=== PATIENT | male | born 1955 | race Two or more races ===

== ENCOUNTER → 2021-02-16 09:00 | Outpatient (CLI) | payer OTHER, SELFPAY ==
[2021-02-16 16:56] LABS: SARS-CoV-2 RNA PCR Negative
== END ==
PROVIDERS: PCP Family Medicine; Visit Provider Nurse Practitioner Family
DX: J40 Bronchitis, not specified as acute or chronic (principal); Z20.822 Contact with and (suspected) exposure to COVID-19
CPT/HCPCS: C9803; U0003; U0005

== ENCOUNTER 2021-07-15 09:03 | Emergency (ER) | payer SELFPAY ==
[2021-07-15] VITALS (12 sets, daily range): BP systolic 109–158; BP diastolic 80–91; PULSE 66–84; RESP 17–25; TEMP 36.6; O2SAT 93–98
--- NOTE | ~2021-07-15 | CT_ITS ---
EXAMINATION: CT brain wo con DATE: 07/15/2021 10:05 INDICATION: Syncopal episode. Right jaw swelling. TECHNIQUE: 1. Computed tomography (CT) of the head was performed without intravenous contrast. Sagittal and dheeraj nal reconstructions were performed. The mA was adjusted according to patient size. Iterative reconstr uction technique was employed. The dose-length product was 605.33 mGy-cm. 2. CT of the soft tissues of the neck was performed with 75 mL Omnipaque-350 intravenous contrast. Sa gittal and coronal reconstructions were performed. Automated exposure control and iterative reconstru ction technique were employed. The dose length product was 621.94 mGy-cm. COMPARISON: head CT dated 12/17/2007 FINDINGS: Head CT: No acute intracranial hemorrhage, acute infarction or abnormal extra axial fluid collection. Ventricl es are normal and symmetric. No mass/mass effect. Neck CT: No abnormally enhancing lesions in the visualized mid to lower portions of the brain. Orbits are norm al. Mild mucosal thickening the bilateral ethmoid sinuses. Mastoid air cells and middle ear cavities are clear. There is asymmetric mild swelling and hyperemia of the right parotid gland with mild edema in the fat along the inferior margin of the right parotid gland consistent with parotitis. No eviden t sialolithiasis. There are multiple dystrophic calcifications at the bilateral palatine tonsils. Antonino ateral submandibular glands are normal. 4.7 cm heterogeneously enhancing mass in the left thyroid lob e. 1.5 cm nodule in the inferior right thyroid lobe. There are few coarse calcifications at both the left and right thyroid. No pathologically enlarged cervical lymphadenopathy. Small amount of atherosc lerotic calcifications with 0% stenosis at the bilateral carotid bulbs. Emphysema and mild dependent atelectasis in the visualized bilateral upper lobes. Superior mediastinum is unremarkable. Severe cer vical spondylosis. IMPRESSION: 1. No acute intracranial process. 2. Right parotitis. 3. Multinodular goiter with 4.7 cm enhancing mass in the left thyroid for which ultrasound guided bio psy would be recommended. 4. Emphysema Reviewed, dictated and finalized at location A. MAL CUTTER HELPER IMPRESSION: 1. No acute intracranial process. 2. Right parotitis. 3. Multinodular goiter with 4.7 cm enhancing mass in the left thyroid for which ultrasound guided biopsy would be recommended. 4. Emphysema
--- NOTE | ~2021-07-15 | CT_ITS ---
EXAMINATION: CT soft tissue neck w con DATE: 07/15/2021 10:05 INDICATION: Syncopal episode. Right jaw swelling. TECHNIQUE: 1. Computed tomography (CT) of the head was performed without intravenous contrast. Sagittal and coronal reconstructions were performed. The mA was adjusted according to patient size. Iterative reconstruction technique was employed. The dose-length product was 605.33 mGy-cm. 2. CT of the soft tissues of the neck was performed with 75 mL Omnipaque-350 intravenous contrast. Sagittal and coronal reconstructions were performed. Automated exposure control and iterative reconstruction technique were employed. The dose length product was 621.94 mGy-cm. COMPARISON: head CT dated 12/17/2007 FINDINGS: Head CT: No acute intracranial hemorrhage, acute infarction or abnormal extra axial fluid collection. Ventricles are normal and symmetric. No mass/mass effect. Neck CT: No abnormally enhancing lesions in the visualized mid to lower portions of the brain. Orbits are norm al. Mild mucosal thickening the bilateral ethmoid sinuses. Mastoid air cells and middle ear cavities are clear. There is asymmetric mild swelling and hyperemia of the right parotid gland with mild edema in the fat along the inferior margin of the right parotid gland consistent with parotitis. No eviden t sialolithiasis. There are multiple dystrophic calcifications at the bilateral palatine tonsils. Antonino ateral submandibular glands are normal. 4.7 cm heterogeneously enhancing mass in the left thyroid lob e. 1.5 cm nodule in the inferior right thyroid lobe. There are few coarse calcifications at both the left and right thyroid. No pathologically enlarged cervical lymphadenopathy. Small amount of atherosc lerotic calcifications with 0% stenosis at the bilateral carotid bulbs. Emphysema and mild dependent atelectasis in the visualized bilateral upper lobes. Superior mediastinum is unremarkable. Severe cer vical spondylosis. IMPRESSION: 1. No acute intracranial process. 2. Right parotitis. 3. Multinodular goiter with 4.7 cm enhancing mass in the left thyroid for which ultrasound guided bio psy would be recommended. 4. Emphysema Reviewed, dictated and finalized at location A. [employer] IMPRESSION: 1. No acute intracranial process. 2. Right parotitis. 3. Multinodular goiter with 4.7 cm enhancing mass in the left thyroid for which ultrasound guided biopsy would be recommended. 4. Emphysema
--- NOTE | 2021-07-15 09:06 | ECG_ITS ---
Measurements Intervals [place] Rate: 72 P: 31 AL: 128 QRS: -23 QRSD: 96 T: 7 QT: 417 QTc: 456 Interpretive Statements SINUS RHYTHM BORDERLINE T WAVE ABNORMALITY- INFERIOR LEADS BORDERLINE ECG Electronically Signed On 07-15-2021 12:03:36 SOFT IRON INSPECTOR by Manuel Brink D.O.
[2021-07-15 09:18] LABS: Basophils Percent Auto 0.6 % (0.2-1.2); Eosinophils Absolute Auto 0.4 K/mm3 (0-0.3); Eosinophils Percent Auto 5.3 % (0-4.4); Hematocrit 44.8 % (42.0-52.0); Hemoglobin 15.5 g/dL (14.0-18.0); Immature Granulocyte Absolute 0.02 K/mm3 (0.00-0.031); Immature Granulocyte Percent A 0.3 % (0-0.5); Lymphocytes Absolute Auto 1.72 K/mm3 (0.9-3.2); Lymphocytes Percent Auto 24.9 % (18.3-44.2); Mean Corpuscular HGB Conc 34.6 g/dl (32-36); Mean Corpuscular Hemoglobin 32.1 pg (26-34); Mean Corpuscular Volume 92.8 fl (80-100); Mean Platelet Volume 10.1 fl (7.4-10.4); Monocytes Absolute Auto 0.7 K/mm3 (0.1-0.6); Neutrophils Absolute Auto 4.1 K/mm3 (1.3-6.7); Neutrophils Percent Auto 58.9 % (45.5-73.1); Platelet Count Result 217 k/mm3 (150-375); Red Blood Count 4.83 M/mm3 (4.6-6.20); Red Cell Distribution Width 13.9 % (11.5-14.5); White Blood Count 6.9 K/mm3 (4.5-10.0)
--- NOTE | 2021-07-15 09:18 | ED.SYNCOPE ---
HPI - Syncope General Chief Complaint: Syncope <Karin Gil APRN - Last Filed: 07/15/21 13:18> Stated Complaint: SYNCOPE <Karin Gil APRN - Last Filed: 07/15/21 13:18> Time Seen by Provider: 07/15/21 09:04 <Karin Gil APRN - Last Filed: 07/15/21 13:18> Source: patient and family <Karin Gil APRN - Last Filed: 07/15/21 13:18> Mode of arrival: EMS <Karin Gil APRN - Last Filed: 07/15/21 13:18> History of Present Illness HPI narrative: 66 year old male with history significant for stomach cancer, htn, and high cholesterol presents today with at bedside with complaints of syncopal episode. Patient states he was nauseated got up to vomit and doesn't remember much after that for a few minutes. Patient states he was diaphoretic and pale while walking towards her and didn't look good. She was holding on to him when he passed out. She thinks a few minutes but is unsure. Per EMS arrived and all vitals were normal. Patient currently A&O x4 without complains except for his right jaw. also mentions some swelling to the right jaw that was noted last night. He took zyrtec last night and this morning. Patient denies sick contacts, fever, cough, abdominal pain, or diarrhea. <Karin Gil APRN - Last Filed: 07/15/21 13:18> Related Data Home Medications: Home Medications Medication Instructions Recorded Confirmed imatinib 400 mg tablet 400 mg PO DAILY 02/16/21 02/16/21 <Karin Gil APRN - Last Filed: 07/15/21 13:18> Allergies/Adverse Reactions: Allergies Allergy/AdvReac Type Severity Reaction Status Date / Time No Known Allergies Allergy Unknown Verified 07/15/21 09:22 <Karin Gil APRN - Last Filed: 07/15/21 13:18> Review of Systems Constitutional: Constitutional: Denies chills, Denies fatigue, Denies fever(s) and Denies weakness <Karin Gil APRN - Last Filed: 07/15/21 13:18> ENT: Reports dry mouth and Reports facial pain (Pain to right jaw with redness and swelling) <Karin Gil ORDER ANALYST - Last Filed: 07/15/21 13:18> Cardiovascular: Cardiovascular: Denies chest pain, Denies rapid heart rate, Denies radiating jaw, neck or arm pain and Denies slow heart rate <Karin Gil, ORDER ANALYST - Last Filed: 07/15/21 13:18> Respiratory: Respiratory: Reports no additional respiratory complaints <Karin Gil ORDER ANALYST - Last Filed: 07/15/21 13:18> Gastrointestinal: Gastrointestinal: Denies abdominal pain, Denies diarrhea, Denies nausea and Denies vomiting <Karin AnthonySandy Louise, ORDER ANALYST - Last Filed: 07/15/21 13:18> Neurologic: Reports as per HPI and Reports syncope <Karin AnthonySandy Louise ORDER ANALYST - Last Filed: 07/15/21 13:18> Psychiatric: Psychiatric: Reports no additional psychiatric complaints <Karin AnthonySandy Louise, ORDER ANALYST - Last Filed: 07/15/21 13:18> [facility] Past Medical History Medical History: Medical History BMI 33.0-33.9,adult <Karin Gil ORDER ANALYST - Last Filed: 07/15/21 13:18> Family History Family History: Family History Father Family history of premature coronary heart disease Family history of diabetes mellitus in first degree relative Cerebrovascular accident Mother Cerebrovascular accident Sibling No problems noted. Other Hypertension <Karin Gil ORDER ANALYST - Last Filed: 07/15/21 13:18> Social History Social History: Social History Smoking status: Never smoker Tobacco type: cigarettes Second hand tobacco smoke exposure: Yes Alcohol intake: current Substance use: never Substance use type: does not use Additional occupation/education comments: accounting Gender identity (if verbalized by the patient): Male <Karin AnthonySandy Louise ORDER ANALYST - Last Filed: 07/15/21 13:18> Exam Const: General: healthy
[2021-07-15 09:29] LABS: Alanine Aminotransferase 40 U/L (4-50); Alkaline Phosphatase 47 U/L (38-126); Anion Gap 7 mmol/L (8-16); Aspartate Amino Transferase 27 U/L (17-59); Bilirubin,Total 0.5 mg/dL (0.2-1.3); Blood Urea Nitrogen 15 mg/dL (9-20); Calcium 9.4 mg/dL (8.4-10.2); Carbon Dioxide 24 mmol/L (22-30); Chloride 108 mmol/L (98-107); Estimated Glomerular Filt Rate > 60; Glucose 143 mg/dL (65-110); Potassium 3.8 mmol/L (3.4-5.0); Sodium 139 mmol/L (137-145)
[2021-07-15] MEDS: SODIUM CHLORIDE 0.9% IV 1,000 ML 999 ML IV CONT (10:23)
== END 2021-07-15 11:30 | disposition home or self-care (01) ==
PROVIDERS: Emergency Provider Nurse Practitioner Family; PCP Family Medicine
DX: R55 Syncope and collapse (principal); K11.21 Acute sialoadenitis; I10 Essential (primary) hypertension; E78.00 Pure hypercholesterolemia, unspecified; Z77.22 Contact with and (suspected) exposure to environmental tobacco smoke (acute) (chronic); E07.9 Disorder of thyroid, unspecified; E04.2 Nontoxic multinodular goiter; J43.9 Emphysema, unspecified; R94.31 Abnormal electrocardiogram [ECG] [EKG]
CPT/HCPCS: 36415; 70450; 70491; 80053; 85025; 93005; 96360; 99284; J7030; Q9967

== ENCOUNTER 2023-02-08 17:15 | Inpatient (IN) | payer SELFPAY ==
[2023-02-08] VITALS (17 sets, daily range): BP systolic 165–222; BP diastolic 88–114; PULSE 59–71; RESP 14–23; TEMP 36.6; O2SAT 91–98
--- NOTE | ~2023-02-08 | US_ITS ---
EXAMINATION: US abdomen complete DATE: 02/11/2023 14:01 INDICATION: Acute renal insufficiency, fatty liver, hepatic mass TECHNIQUE: Multiple grayscale and Doppler ultrasound images of the abdomen were obtained. COMPARISON: None FINDINGS: The visualized portion of the pancreatic body appears normal. The majority pancreas including head an d tail are obscured. Liver has normal contour, with a smooth surface. There is increased parenchymal echogenicity and coarsened echotexture consistent with diffuse hepatic steatosis. 2.8 x 2.5 x 1.5 cm hypoechoic lesion in the right hepatic lobe without correlate on the CT from 13 years prior. Portal v enous flow was seen in the hepatopetal, normal direction and has normal Doppler waveform. The gallbla dder is normal in appearance. There is no cholelithiasis. The common bile duct measures 5-6 mm, whic h is normal. No intrahepatic biliary duct dilation suspected. Sonographic Jordan sign was reported as negative by the forestry conservation worker. The aorta and inferior vena cava are unable be clearly visualized on gr ayscale imaging however appropriate directional flow is evident within each on color Doppler. The rig ht kidney measures 13.1 x 5.3 x 5.6 cm and the left 11.9 x 6.7 x 5.8 cm. 5.9 cm partially exophytic c yst at the upper pole of the left kidney. There is otherwise normal renal contour and echogenicity bi laterally. There is no hydronephrosis. Normal spleen measuring 10.1 cm in maximal length. Bladder is normal. IMPRESSION: 1. Diffuse hepatic steatosis with 2.8 cm indeterminate hypoechoic lesion in the right hepatic lobe. R ecommend further evaluation with pre and postcontrast MRI or CT. 2. 5.9 cm left renal cyst. Otherwise normal kidneys with no hydronephrosis. Reviewed, dictated and finalized at location A. IMPRESSION: 1. Diffuse hepatic steatosis with 2.8 cm indeterminate hypoechoic lesion in the right hepatic lobe. Recommend further evaluation with pre and postcontrast MRI or CT. 2. 5.9 cm left renal cyst. Otherwise normal kidneys with no hydronephrosis.
--- NOTE | ~2023-02-08 | US_ITS ---
EXAMINATION: US retroperitoneal duplex ltd DATE: 02/11/2023 14:01 INDICATION: Uncontrolled hypertension TECHNIQUE: Multiple grayscale, color Doppler, and pulsed Doppler images of the kidneys and renal audra crow were obtained. COMPARISON: None. FINDINGS: The aorta peak systolic velocity is 62 cm/s. The right renal artery peak systolic velocity is 94 cm/s in the proximal segment, 84 cm/s in the mid segment, and 78 cm/s in the distal segment. The left alka al artery peak systolic velocity is 110 cm/s in the proximal segment, 37 cm/s in the mid segment, and 43 cm/s in the distal segment. IMPRESSION: 1. No Doppler evidence of renal artery stenosis. Reviewed, dictated and finalized at location A.
--- NOTE | ~2023-02-08 | CT_ITS ---
EXAMINATION: CT brain wo con INDICATION: Dizziness COMPARISON: 07/15/2021 TECHNIQUE: Standard unenhanced head CT. The dose-length product (DLP) was 908.00 mGy-cm. The mA was a djusted according to patient size. Iterative reconstruction technique was employed. FINDINGS: No intracranial hemorrhage, acute infarction, or abnormal mass lesion. The ventricles are n ormal. No abnormal mass effect or midline shift. The san-white matter differentiation is normal. The basal cisterns are patent. The orbits are normal. There is mild mucosal thickening of the paranasal sinuses. IMPRESSION: 1. No acute intracranial abnormality. Reviewed, dictated and finalized at location F.
--- NOTE | ~2023-02-08 | XR_ITS ---
EXAMINATION: XR chest 1V INDICATION: Hypertension TECHNIQUE: PA view of the chest is obtained. COMPARISON: 05/18/2007 FINDINGS: The lungs are free of acute opacities. No pleural effusion or pneumothorax. The cardiomedia stinal silhouette is normal. IMPRESSION: 1. No acute cardiopulmonary abnormality. Reviewed, dictated and finalized at location F.
--- NOTE | 2023-02-08 20:16 | ECG_ITS ---
Measurements Intervals [place] Rate: 59 P: -31 [place]: 160 QRS: -26 QRSD: 114 T: -28 QT: 431 QTc: 429 Interpretive Statements SINUS BRADYCARDIA INTRAVENTRICULAR CONDUCTION DELAY VOLTAGE CRITERIA FOR LVH BORDERLINE T WAVE ABNORMALITY- INFERIOR LEADS BORDERLINE ECG COMPARED TO ECG 07/15/2021 09:14:24 SINUS BRADYCARDIA NOW PRESENT INTRAVENTRICULAR CONDUCTION DELAY NOW PRESENT Electronically Signed On 02-09-2023 6:30:30 CDT by Manuel Brink D.O.
[2023-02-08] MEDS: hydrALAZINE HCL 20 MG/ML VIAL 10 MG IV PUSH (20:54)
[2023-02-08 21:35] LABS: White Blood Count 10.5 K/mm3 (4.5-10.0)
[2023-02-08 21:36] LABS: Red Blood Count 5.09 M/mm3 (4.6-6.20)
[2023-02-08 21:36] LABS: Appearance Urine Clear (Clear); Bilirubin Urine Negative (Negative); Blood Urine Negative (Negative); Color Urine Yellow (Yellow); Glucose Urine UA Negative (Negative); Ketones Urine Negative (Negative); Nitrate Urine Negative (Negative); Protein Urine Negative (Negative); Specific Grav Ur 1.005 (1.001-1.035); pH Urine 6.5 (5.0-9.0)
[2023-02-08 21:37] LABS: Add Urine Microscopic? NO; Leukocyte Esterase Ur Negative LEU/UL (Negative); Urobilinogen Urine 0.2 mg/dL (<2.0)
[2023-02-08 21:37] LABS: Hematocrit 44.1 % (42.0-52.0); Mean Corpuscular Hemoglobin 29.5 pg (26-34); Mean Corpuscular Volume 86.6 fl (80-100); Platelet Count Result 240 k/mm3 (150-375); Red Cell Distribution Width 12.9 % (11.5-14.5)
[2023-02-08 21:38] LABS: Mean Platelet Volume 10.2 fl (7.4-10.4)
[2023-02-08 21:41] LABS: Basophils Percent Auto 0.6 % (0.2-1.2); Eosinophils Percent Auto 6.2 % (0-4.4); Lymphocytes Percent Auto 26.7 % (18.3-44.2); Monocytes Percent Auto 10.2 % (2.6-8.5)
[2023-02-08 21:44] LABS: INR 1.1; Partial Thromboplastin Time 30.1 SECONDS (22.3-36.8); Prothrombin Time 14.4 Seconds (11.1-14.7)
[2023-02-08 21:45] LABS: Immature Granulocyte Absolute 0.03 K/mm3 (0.00-0.031); Immature Granulocyte Percent A 0.3 % (0-0.5)
[2023-02-08 21:46] LABS: Basophils Absolute Auto 0.1 K/mm3 (0.0-0.1); Eosinophils Absolute Auto 0.7 K/mm3 (0-0.3); Lymphocytes Absolute Auto 2.79 K/mm3 (0.9-3.2); Monocytes Absolute Auto 1.1 K/mm3 (0.1-0.6); Neutrophils Absolute Auto 5.9 K/mm3 (1.3-6.7)
[2023-02-08 22:17] LABS: Alanine Aminotransferase 39 U/L (6-50); Albumin Level 4.4 g/dL (3.5-5.1); Alkaline Phosphatase 73 U/L (38-126); Anion Gap 13 mmol/L (8-16); Aspartate Amino Transferase 36 U/L (17-59); Bilirubin,Total 0.5 mg/dL (0.2-1.3); Blood Urea Nitrogen 13 mg/dL (9-20); Calcium 9.4 mg/dL (8.4-10.2); Carbon Dioxide 22 mmol/L (22-30); Chloride 102 mmol/L (98-107); Estimated CRCL calculation 71 ml/min; Estimated Glomerular Filt Rate > 60; Glucose 105 mg/dL (65-110); Lipase 71 U/L (23-300); Magnesium 1.8 mg/dL (1.6-2.3); Potassium 3.4 mmol/L (3.4-5.0); Sodium 137 mmol/L (137-145)
[2023-02-08 22:29] LABS: NT Pro B Type Natriuretic Pept 253 pg/mL (19.9-100); Troponin I 0.067 ng/mL (0.000-0.034)
--- NOTE | 2023-02-08 22:52 | ED.GENADULT ---
HPI - General Adult General Chief complaint: Recheck/Abnormal Lab/Rx Stated complaint: htn Time Seen by Provider: 02/08/23 20:08 History of Present Illness HPI narrative: Patient is a 67-year-old gentleman who presents the emergency department with chief complaint of hypertension and headache. Patient reports that he has history of hypertension and takes hydrochlorothiazide and Coreg patient reports that has noticed that his blood pressures been elevated recently and was told by his primary provider to increase his doses of medication patient states that today he has had developed severe headache with this and also noticed that he had some discomfort in his chest. Patient took his blood pressure and it was in the 200s. Related Data Allergies Allergy/AdvReac Type Severity Reaction Status Date / Time No Known Allergies Allergy Unknown Verified 01/17/23 12:41 Review of Systems Review of Systems: A 10 system review of systems was completed on the patient and is negative except for what is stated in the HPI. Nursing and ancillary documentation was reviewed. [facility] Past Medical History Medical History BMI 33.0-33.9,adult BMI 34.0-34.9,adult BMI 35.0-35.9,adult Liver cancer Family History Family History Father Family history of premature coronary heart disease Family history of diabetes mellitus in first degree relative Cerebrovascular accident Mother Cerebrovascular accident Sibling Sibling No problems noted. Other Hypertension Social History Social History Smoking status: Never smoker Tobacco type: cigarettes Second hand tobacco smoke exposure: Yes Alcohol intake: current Substance use: never Substance use type: does not use Living arrangements: with family Occupation/Education: retired Additional occupation/education comments: accounting Gender identity (if verbalized by the patient): Male Exam Narrative: GENERAL: Well-appearing, well-nourished, and in no acute distress. HEAD: Normocephalic, atraumatic. EYES: PERRLA and EOMI. ENT: Nares clear, no rhinorrhea or epistaxis. Mucous membranes moist. NECK: Supple. CHEST: Clear to auscultation. No respiratory distress. HEART: Regular rate and rhythm. No murmur heard. Normal peripheral pulses. ABDOMEN: Soft, nontender, nondistended, normal active bowel sounds. EXTREMITIES: Normal range of motion. No edema. SKIN: Warm, dry, no rash. NEURO: No focal deficits. Alert and oriented x3. PSYCH: Normal mood and affect. Course Vital Signs Vital signs: Vital Signs Temperature 36.6 C 02/08/23 17:19 Pulse Rate 63 02/08/23 17:19 Respiratory Rate 16 02/08/23 17:19 Blood Pressure 222/114 H 02/08/23 17:19 Pulse Oximetry 98 02/08/23 17:19 Oxygen Delivery Room Air 02/08/23 17:19 Temperature 36.6 C 02/08/23 17:19 Pulse Rate 71 02/08/23 22:15 Respiratory Rate 16 02/08/23 22:15 Blood Pressure 174/99 H 02/08/23 22:01 Pulse Oximetry 98 02/08/23 22:02 Oxygen Delivery Room Air 02/08/23 20:08 Medical Decision Making [facility] Narrative Medical decision making narrative: Differential diagnosis includes hypertensive urgency, essential hypertension, ACS, Laboratory studies were obtained and the patient which showed a normal CBC electrolytes were within normal limits normal renal function with a GFR of greater than 60 patient had an initial troponin 0.067 and a BNP of 253 Due to the headache and hypertension CT scan of the head was obtained that showed no evidence of acute intercranial process Chest x-ray showed no focal infiltrate EKG is sinus bradycardia rate of [address] elevation or ST depression Vital Signs Vital Signs: Vital Signs Temperature 36.6 C 02/08/23 17:19 P
[2023-02-08] MEDS: ASPIRIN 81 MG CHEWABLE TABLET 324 MG PO (22:53)
--- NOTE | 2023-02-08 23:08 | PC.NURSE ---
pt care and report given to LIANET Velazquez. all questions answered.
[2023-02-09] VITALS (38 sets, daily range): BP systolic 120–188; BP diastolic 58–105; PULSE 62–114; RESP 13–30; TEMP 36.2–36.7; O2SAT 92–99; BMI 33.8
[2023-02-09] MEDS: hydrALAZINE HCL 20 MG/ML VIAL 10 MG IV PUSH ×2 (03:49→12:29)
[2023-02-09 06:22] LABS: Troponin I 0.067 ng/mL (0.000-0.034)
[2023-02-09] MEDS: ACETAMINOPHEN 325 MG TABLET 650 MG PO ×3 (07:18→17:46)
[2023-02-09] MEDS: ASPIRIN 81 MG CHEWABLE TABLET PO (08:21)
--- NOTE | 2023-02-09 11:47 | ADMGEN ---
This patient, Javier Azul, was admitted to IMU Room 209-01. Patient/family oriented to hospital policies and general routines including ID bracelet, bed and alarms, visiting hours, pain management, procedures, bathroom and other care routines, personal items, smoking policy, room service/diet, and visiting hours. Information on how to activate the Rapid Response Team has been discussed. Patient/Family are encouraged to report perceived risks to care and to ask questions if they do not understand what they are told or what they should do.
[2023-02-09 12:04] LABS: Glucose Point of Care 108 mg/dl (65-105)
[2023-02-09 15:56] LABS: Troponin I 0.059 ng/mL (0.000-0.034)
[2023-02-09] MEDS: ROSUVASTATIN 10 MG TABLET 20 MG PO (17:45)
[2023-02-09] MEDS: PANTOPRAZOLE 40 MG TABLET PO (17:45)
--- NOTE | 2023-02-09 17:47 | PM.IMHP ---
H&P: HPI History of Present Illness Date/Time: 02/09/23 17:47 Chief Complaint: heache Narrative: 67M w/ PMH HLD and HTN who has had difficult to manage HTN presented with headache and HTN. For a month now he has had elevated BP, and just prior to admission it was systolic 200 accompanied by headache which prompted them to present. The report the PCP had increased on of the pt's medications and they don't remember which. He mentioned some chest discomfort in the ER but at the current evaluation in room 209 bed 1 he denies any symptoms. His headache and any chest discomfort have been relieved. The patient does not smoke or do drugs. Review of Systems Cardiovascular: Cardiovascular: Denies chest pain and Denies lightheadedness Respiratory: Respiratory: Denies chest congestion and Denies wheezing Gastrointestinal: Gastrointestinal: Denies abdominal pain, Denies diarrhea, Denies nausea and Denies vomiting Genitourinary: Genitourinary: Denies hematuria Musculoskeletal: Musculoskeletal: Denies arthralgias and Denies joint swelling Neurologic: Denies Abnormal speech present, Denies abnormal gait, Denies confusion and Reports headache(s) Psychiatric: Psychiatric: Denies anxiety and Denies depression [facility] Past Medical History Medical History (Updated 02/09/23 @ 17:51 by Juliane Oliver MD) Accelerated hypertension BMI 33.0-33.9,adult BMI 34.0-34.9,adult BMI 35.0-35.9,adult Liver cancer Family History Family History Father Family history of premature coronary heart disease Family history of diabetes mellitus in first degree relative Cerebrovascular accident Mother Cerebrovascular accident Sibling Sibling No problems noted. Other Hypertension Social History Social History Smoking packs per day: 1.5 Smoking cigarettes per day: 30.0 Years smoked: 20 Smoking pack-years: 30.00 Smoking status: Former smoker Tobacco type: cigarettes Second hand tobacco smoke exposure: Yes Alcohol intake: never Substance use: never Substance use type: does not use Lack of Transportation: No Lack of Food: Never True Current Housing: I Have Housing Concerned About Future Housing: No Difficulty Paying Gas/Electric Bills: No Difficulty Paying for Meds: No Currently Unemployed: No Education: High School Diploma/GED Difficulty w/ Childcare or Family Care: No Living arrangements: with family Occupation/Education: retired Additional occupation/education comments: accounting Gender identity (if verbalized by the patient): Male Spiritual care concerns: No Meds Home Medications and Allergies Home Medications Medication Instructions Recorded Confirmed Type flash glucose sensor (FreeStyle #6 ea 09/17/19 02/09/23 Rx Sheila 14 Day Sensor kit) flash glucose scanning reader #1 ea 09/18/19 02/09/23 Rx (FreeStyle Sheila 14 Day [place]) rosuvastatin 20 mg tablet (Crestor) 20 mg PO DAILY #30 tabs 06/15/22 02/09/23 Rx lisinopril 40 mg tablet 40 mg PO DAILY #90 tabs 12/12/22 02/09/23 Rx omeprazole 40 mg capsule,delayed 40 mg PO DAILY #30 caps 01/08/23 02/09/23 Rx release hydrochlorothiazide 12.5 mg tablet 12.5 mg PO DAILY #90 tabs 01/17/23 02/09/23 Rx carvedilol 12.5 mg tablet 12.5 mg PO Q12H 02/09/23 02/09/23 History clotrimazole-betamethasone 1 1 applic topical BID PRN Itching 02/09/23 02/09/23 History %-0.05 % topical cream Allergies Allergy/AdvReac Type Severity Reaction Status Date / Time No Known Allergies Allergy Unknown Verified 02/09/23 07:28 Vital Signs Vital Signs - 24 hr 02/08/23 20:08 02/08/23 20:15 02/08/23 20:51 Temperature Pulse Rate 64 59 L 61 Respiratory Rate 20 16 19 Blood Pressure 221/111 H Pulse Oximetry 97 97 95 Oxygen Delivery Room Air 02/08/23 20:52 02/08/23 20:53 02/08
[2023-02-09] MEDS: hydroCHLOROthiazide 25 MG TABLET PO (17:48)
[2023-02-09] MEDS: carvediloL 12.5 MG TABLET PO (21:11)
[2023-02-09] MEDS: hydrALAZINE 5 MG TABLET PO (21:11)
[2023-02-10] VITALS (17 sets, daily range): BP systolic 109–128; BP diastolic 70–82; PULSE 72–109; RESP 16–18; TEMP 36.3–36.6; O2SAT 95–97
[2023-02-10 05:28] LABS: Hematocrit 46.6 % (42.0-52.0); Hemoglobin 15.5 g/dL (14.0-18.0); Mean Corpuscular HGB Conc 33.3 g/dl (32-36); Mean Corpuscular Hemoglobin 29.2 pg (26-34); Mean Corpuscular Volume 87.9 fl (80-100); Mean Platelet Volume 10.4 fl (7.4-10.4); Platelet Count Result 265 k/mm3 (150-375); Red Cell Distribution Width 13.4 % (11.5-14.5)
[2023-02-10 05:41] LABS: Anion Gap 10 mmol/L (8-16); Blood Urea Nitrogen 20 mg/dL (9-20); Calcium 9.6 mg/dL (8.4-10.2); Carbon Dioxide 30 mmol/L (22-30); Chloride 100 mmol/L (98-107); Estimated CRCL calculation 51 ml/min; Estimated Glomerular Filt Rate 51; Glucose 111 mg/dL (65-110); Magnesium 2.1 mg/dL (1.6-2.3); Potassium 3.9 mmol/L (3.4-5.0); Sodium 140 mmol/L (137-145)
[2023-02-10 08:10] LABS: Procalcitonin 0.1 ng/mL
[2023-02-10] MEDS: ROSUVASTATIN 10 MG TABLET 20 MG PO (09:28)
[2023-02-10] MEDS: hydroCHLOROthiazide 25 MG TABLET PO (09:28)
[2023-02-10] MEDS: hydrALAZINE 5 MG TABLET PO ×2 (09:28→16:38)
[2023-02-10] MEDS: ASPIRIN 81 MG CHEWABLE TABLET PO (09:28)
[2023-02-10] MEDS: PANTOPRAZOLE 40 MG TABLET PO ×2 (09:29→16:38)
[2023-02-10] MEDS: carvediloL 12.5 MG TABLET PO ×2 (09:29→20:21)
[2023-02-10] MEDS: lisinopriL 20 MG TABLET 40 MG PO (09:29)
[2023-02-10] MEDS: ACETAMINOPHEN 325 MG TABLET 650 MG PO (09:32)
--- NOTE | 2023-02-10 13:19 | PM.IMPN ---
Progress Note: A&P Assessment and Plan (1) Accelerated hypertension: Code(s): I10 - Essential (primary) hypertension Status: Acute (2) PAN (acute kidney injury): Code(s): N17.9 - Acute kidney failure, unspecified Status: Acute (3) Dry cough: Code(s): R05.8 - Other specified cough Status: Acute Plan 67M w/ PMH HLD and HTN who has had difficult to manage HTN presented with headache and HTN. Admittd on 02/08 for troponin elevation and HTN 1) accelerated HTN?- presented with SBP of 222. home meds include coreg, HCTZ, and lisinopril. On admission changed his HCTZ to full dose 25mg po qday, and added hydralazine 5mg po qid. On day 2 his SBP has come down to SBP 109 and he has developed PAN. D'C HCTZ and lisinopril. decrease hydralazine to TID. based on BP tomorrow AM consider adjusting HCTZ and hydralazine appropriately and sending home 2) elevated troponins - slight bump, now downtrending. likely 2/2 to demand ischemia in the setting of hypertensive urgency. He denies any symptoms and his EKG does not reveal acute ischemic changes 3) leukocytosis - downtrending, likely 2/2 to acute stress. procalcitonin appreciated 4) PAN - likely 2/2 to increased HCTZ and/or accelerated HTN or rapid drop in BP - monitor another day. decrease BP meds and provide continuous volume of 83ml/hr of NS 5) dry cough - d/c lisinopril. CXR unremarkable. viral panel unremarkable. FEN: NS @ 83ml/hr. cardiac diet GI prophylaxis: none DVT prophylaxis: none Lines: pIV Code Status: Full code Dispo: pending home tomorrow if sCR and BP stable/better. More than 35 minutes spent on chart review, patient interaction and assessment and plan. Subjective Date/time seen: 02/10/23 13:19 Interval history: NAOE. son, Lai, is at bedside again. The patient continues to feel asymptomatic. To reiterate, he states he had dry cough for more than a month now. His lisinopril was increased 6 months ago. They are amenable to my suggested plan and staying another day. Review of Systems Cardiovascular: Cardiovascular: Denies chest pain and Denies dyspnea Respiratory: Respiratory: Denies cough and Denies dyspnea Gastrointestinal: Gastrointestinal: Denies abdominal pain and Denies vomiting Exam Const: General: no acute distress, alert and Physically active Resp: Effort & Inspection: normal respiratory effort Auscultation: clear to auscultation bilaterally Cardio: Rate: regular rate Rhythm: regular rhythm Heart sounds: S1 normal heart sound present and S2 normal heart sound present GI: Inspection: non-distended GI Palp: No abdominal tenderness Auscultation: normal bowel sounds Extrem: Right upper extremity: no edema Objective Data Vital Signs Vital Signs: Vital Signs - 24 hr 02/09/23 14:00 02/09/23 16:00 02/09/23 16:00 Temperature 98.1 F Pulse Rate 92 114 H 77 Respiratory Rate 16 Blood Pressure 156/95 H Pulse Oximetry 96 Oxygen Delivery 02/09/23 18:00 02/09/23 16:00 02/09/23 19:55 Temperature 97.3 F L Pulse Rate 105 H 96 Respiratory Rate 16 Blood Pressure 126/91 H Pulse Oximetry 96 Oxygen Delivery Room Air 02/09/23 21:11 02/09/23 20:00 02/09/23 23:46 Temperature 97.2 F L Pulse Rate 99 94 104 H Respiratory Rate 18 Blood Pressure 120/76 Pulse Oximetry 93 Oxygen Delivery 02/09/23 22:00 02/10/23 04:26 02/10/23 00:00 Temperature 97.8 F Pulse Rate 86 103 H 72 Respiratory Rate 16 Blood Pressure 128/79 Pulse Oximetry 97 Oxygen Delivery 02/10/23 02:00 02/10/23 04:00 02/10/23 06:00 Temperature Pulse Rate 81 74 85 Respiratory Rate Blood Pressure Pulse Oximetry Oxygen Delivery 02/10/23 08:00 02/10/23 09:29 02/10/23 12:00 Temperature 97.8 F 97.3 F L Pulse Rate 108 H 105 H 109 H Respiratory Rate 18 16 Blood Pressure 127/82 109/75 Pulse Oximetry 95 97 Oxygen Delivery Intake/Output Intake/Output: Intake & Outpu
[2023-02-10] MEDS: SODIUM CHLORIDE 0.9% IV 1,000 ML 83 ML IV CONT (14:15)
[2023-02-11] VITALS (13 sets, daily range): BP systolic 107–129; BP diastolic 54–83; PULSE 66–88; RESP 16–20; TEMP 35.7–36.6; O2SAT 94–97
[2023-02-11 04:26] LABS: Basophils Absolute Auto 0.1 K/mm3 (0.0-0.1); Basophils Percent Auto 0.5 % (0.2-1.2); Eosinophils Absolute Auto 0.5 K/mm3 (0-0.3); Eosinophils Percent Auto 4.1 % (0-4.4); Hematocrit 40.6 % (42.0-52.0); Hemoglobin 13.7 g/dL (14.0-18.0); Immature Granulocyte Absolute 0.03 K/mm3 (0.00-0.031); Immature Granulocyte Percent A 0.3 % (0-0.5); Lymphocytes Percent Auto 23.9 % (18.3-44.2); Mean Corpuscular HGB Conc 33.7 g/dl (32-36); Mean Corpuscular Hemoglobin 29.7 pg (26-34); Mean Corpuscular Volume 87.9 fl (80-100); Mean Platelet Volume 10.1 fl (7.4-10.4); Monocytes Absolute Auto 1.2 K/mm3 (0.1-0.6); Monocytes Percent Auto 10.4 % (2.6-8.5); Neutrophils Absolute Auto 7.1 K/mm3 (1.3-6.7); Neutrophils Percent Auto 60.8 % (45.5-73.1); Platelet Count Result 231 k/mm3 (150-375); Red Blood Count 4.62 M/mm3 (4.6-6.20); Red Cell Distribution Width 13.5 % (11.5-14.5); White Blood Count 11.7 K/mm3 (4.5-10.0)
[2023-02-11 04:38] LABS: Anion Gap 11 mmol/L (8-16); Blood Urea Nitrogen 22 mg/dL (9-20); Calcium 8.8 mg/dL (8.4-10.2); Carbon Dioxide 23 mmol/L (22-30); Chloride 105 mmol/L (98-107); Estimated CRCL calculation 51 ml/min; Estimated Glomerular Filt Rate 51; Glucose 111 mg/dL (65-110); Potassium 3.3 mmol/L (3.4-5.0); Sodium 139 mmol/L (137-145)
[2023-02-11] MEDS: PANTOPRAZOLE 40 MG TABLET PO ×2 (09:05→16:23)
[2023-02-11] MEDS: ASPIRIN 81 MG CHEWABLE TABLET PO (09:05)
[2023-02-11] MEDS: ROSUVASTATIN 10 MG TABLET 20 MG PO (09:05)
[2023-02-11] MEDS: POTASSIUM CHLORIDE 20 MEQ ER TABLET 40 MEQ PO (09:05)
[2023-02-11] MEDS: carvediloL 12.5 MG TABLET PO ×2 (09:06→20:34)
[2023-02-11] MEDS: hydrALAZINE 5 MG TABLET PO (09:06)
--- NOTE | 2023-02-11 09:56 | PM.IMPN ---
Progress Note: A&P Assessment and Plan (1) Accelerated hypertension: Code(s): I10 - Essential (primary) hypertension Status: Acute Assessment and Plan: WITH HYPOKALEMIA IN PRESENCE OF PAN AND HCTZ, SCREEN FOR ROSANGELA'S AND HYPERALDOSTERONISM SCREEN FOR BASIA PHEO CLINICALLY UNLIKELY SLEEP APNEA CLINICALLY LIKELY 02/11 STOP HYDRALAZINE, ADD AMLODIPINE (BEGINS 02/12), CONTINUE CARVEDILOL (ON THIS CHRONICALLY) F/U BP, 02/11 126/76 (2) PAN (acute kidney injury): Code(s): N17.9 - Acute kidney failure, unspecified Status: Acute Assessment and Plan: LIKELY DUE TO UNCONTROLLED HBP U/A NOTED AND WNL CHECK RENAL U/S (3) Elevated troponin: Code(s): R77.8 - Other specified abnormalities of plasma proteins Status: Acute Assessment and Plan: FLAT, LIKELY DUE TO UNCONTROLLED HBP NO ACS (4) Prediabetes: Code(s): R73.03 - Prediabetes Status: Acute Assessment and Plan: CHECK A1C (5) Liver mass: Code(s): R16.0 - Hepatomegaly, not elsewhere classified Status: Acute Assessment and Plan: LIKELY CYST U/S ABD PENDING (6) Fatty liver: Code(s): K76.0 - Fatty (change of) liver, not elsewhere classified Status: Acute Assessment and Plan: U/S ABD PENDING Subjective Date/time seen: 02/11/23 09:56 Interval history: Admitted 02/08 with BP 220/130 and left axilla and arm tingling as well as h/a. Resolved with lowering of BP. BP at home was increasing over the past few weeks. Was taking lisinopril 40mg daily and carvedilol 6.25mg bid. HCTZ 25mg then added. Then carvedilol and HCTZ doubled and BP fell to 100 systolic. Spouse confirms medication adherence. Has been eating more healthy, losing weight, avoiding salt. Denied cp or sob. Does have mild anle swelling. Has daytime drowsiness, loud snoring, observed apneas (per spouse). Cardiac cath ok in 2005. No hx of sleep study. 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 Denied gi/gu issues other than nocturia x3. Denied abnl bleeding. Denied other weakness or numbness. Review of Systems Review of Systems: All systems reviewed & are unremarkable except as noted in HPI and below Exam Narrative: EENT: PERRL, sclerae nonicteric, pharyngeal mucosa pink and intact, CROWDED POSTERIOR PHARYNGEAL AIRWAY. NECK: No JVD, adenopathy, or thyromegaly. CHEST: Clear to auscultation. Normal effort. HEART: NL S1/S2, regular, no murmur ABDOMEN: BS+, soft, nontender, no mass, no bruits. EXTREMITIES: TRACE ANKLE EDEMA NEUROLOGIC: CN intact and symmetric to inspection. MUSCULOSKELETAL: Tone and strength symmetric. PSYCH: Alert. Oriented to person, place, and time. Objective Data Vital Signs Vital Signs: Vital Signs - 24 hr 02/10/23 12:00 02/10/23 15:25 02/10/23 12:00 Temperature 97.3 F L 97.6 F Pulse Rate 109 H 72 Respiratory Rate 16 16 Blood Pressure 109/75 117/70 Pulse Oximetry 97 97 Oxygen Delivery Room Air 02/10/23 16:00 02/10/23 10:00 02/10/23 12:00 Temperature Pulse Rate 90 99 Respiratory Rate Blood Pressure Pulse Oximetry Oxygen Delivery Room Air 02/10/23 14:00 02/10/23 16:00 02/10/23 18:00 Temperature Pulse Rate 95 80 93 Respiratory Rate Blood Pressure Pulse Oximetry Oxygen Delivery 02/10/23 20:05 02/10/23 20:21 02/10/23 20:20 Temperature 97.8 F Pulse Rate 95 87 Respiratory Rate 18 Blood Pressure 118/78 Pulse Oximetry 95 Oxygen Delivery Room Air 02/10/23 20:00 02/10/23 22:00 02/11/23 00:03 Temperature 97.3 F L Pulse Rate 91 93 69 Respiratory Rate 16 Blood Pressure 129/66 Pulse Oximetry 95 Oxygen Delivery 02/11/23 00:00 02/11/23 00:00 02/11/23 02:00 Temperature Pulse Rate 87 85 Respiratory Rate Blood Pressure Pulse Oximetry Oxygen Delivery Room Air 02/11/23 03:55 02/11/23 04:00 02/11/23 04:00 Temperature 97.9 F Pulse Rate 81 77 Respiratory Rate 16 Blood Pre
--- NOTE | 2023-02-11 13:36 | PC.NURSE ---
This patient, Javier Azul, was transferred to [facility] on 02/11/23 at 1230. Personal belongings sent with patient. Report given to Stefani. Appropriate documentation sent with patient.
--- NOTE | 2023-02-11 14:22 | PC.NURSE ---
This patient, Javier Azul, was received from [ IMU] on 02/11/23 at 1230. Patient/family oriented to unit policies and routines
[2023-02-12 00:37] VITALS: O2SAT 97
[2023-02-12 06:17] VITALS: BP 138/86; PULSE 66; RESP 16; TEMP 36.2; O2SAT 98
--- NOTE | 2023-02-12 06:31 | PC.NURSE ---
This RN has reviewed and agrees with Bre Andrade (license pending RN) nursing notes, assessments, and medication administrations.
[2023-02-12 07:09] LABS: Hematocrit 42.6 % (42.0-52.0); Hemoglobin 14.2 g/dL (14.0-18.0); Mean Corpuscular HGB Conc 33.3 g/dl (32-36); Mean Corpuscular Hemoglobin 29.5 pg (26-34); Mean Corpuscular Volume 88.4 fl (80-100); Mean Platelet Volume 10.3 fl (7.4-10.4); Platelet Count Result 268 k/mm3 (150-375); Red Blood Count 4.82 M/mm3 (4.6-6.20); Red Cell Distribution Width 13.3 % (11.5-14.5); White Blood Count 9.1 K/mm3 (4.5-10.0)
[2023-02-12 07:17] LABS: Albumin Level 4.3 g/dL (3.5-5.1); Anion Gap 12 mmol/L (8-16); Blood Urea Nitrogen 17 mg/dL (9-20); Calcium 9.2 mg/dL (8.4-10.2); Carbon Dioxide 23 mmol/L (22-30); Chloride 104 mmol/L (98-107); Estimated CRCL calculation 71 ml/min; Estimated Glomerular Filt Rate > 60; Glucose 119 mg/dL (65-110); Phosphorus 4.3 mg/dL (2.5-4.5); Potassium 3.8 mmol/L (3.4-5.0); Sodium 139 mmol/L (137-145)
[2023-02-12 07:25] LABS: Iron 83 ug/dL (49-181)
[2023-02-12 07:27] LABS: Hemoglobin A1C 5.9 % (<5.7)
[2023-02-12 07:37] LABS: Percent Iron Saturation 24 % (20-50)
[2023-02-12 08:44] VITALS: PULSE 70
[2023-02-12] MEDS: carvediloL 12.5 MG TABLET PO (08:44)
[2023-02-12] MEDS: ASPIRIN 81 MG CHEWABLE TABLET PO (08:44)
[2023-02-12] MEDS: ROSUVASTATIN 10 MG TABLET 20 MG PO (08:45)
[2023-02-12] MEDS: amLODIPine BESYLATE 5 MG TABLET PO (08:45)
[2023-02-12] MEDS: PANTOPRAZOLE 40 MG TABLET PO (08:46)
--- NOTE | 2023-02-12 11:14 | PM.DS ---
DS: Admitting Diagnosis Discharge Date 02/12/2023 Admitting Diagnosis Hypertension DS: Discharge Diagnosis Discharge Diagnosis (1) Accelerated hypertension: Code(s): I10 - Essential (primary) hypertension Status: Acute DS: Summary Hospital Course Hospital Course: Patient admitted with hypertensive urgency. Renal ultrasound negative for renal artery stenosis. Blood pressure controlled now with the addition of amlodipine to his medications. He had a liver ultrasound and liver mass was found. Liver MRI is recommended but patient already follows up with a liver specialist at [facility]. This is a chronic finding and patient advised to follow-up with his specialist for the same. Patient is stable and is being discharged home Time Spent with Patient Time attestation: Total time spent providing and/or coordinating discharge services: DS: Data Data Completed and Pending Labs on day of discharge: Labs from last 24 hours 02/12/23 02/12/23 06:55 06:55 WBC 9.1 RBC 4.82 Hgb 14.2 Hct 42.6 MCV 88.4 MCH 29.5 MCHC 33.3 RDW 13.3 Plt Count 268 MPV 10.3 Sodium 139 Potassium 3.8 Chloride 104 Carbon Dioxide 23 Anion Gap 12 BUN 17 Creatinine 1.00 Estim Creat Clear Calc 71 Estimated GFR > 60 Glucose 119 H Hemoglobin A1c 5.9 H Calcium 9.2 Phosphorus 4.3 Magnesium 2.0 Iron 83 TIBC 341 % Saturation 24 Albumin 4.3 Renin Activity Pending Aldosterone Pending Pending Aldosterone/Renin Dir Pending TSH (Reflex) 0.540 Discharge Plan Discharge Discharging Clinician: Francisco Hand Anticipated Discharge Date/Time: 02/12/23 11:13 Patient Disposition: Home, Self-Care Activity: no preference Diet: heart healthy Patient Instructions: Antibiotic Form Stand Alone Forms: General Discharge Information Follow-up/Referrals: Orlando Toney MD [Primary Care Provider] - Discharge Medications: New amlodipine [Norvasc] 5 mg Tablet 10 mg PO QAM Qty: 30 0RF Continued carvedilol 12.5 mg tablet 12.5 mg PO Q12H clotrimazole-betamethasone 1-0.05 % cream 1 applic TOPICAL BID PRN (Reason: Itching) Rx Instructions: for toe (DME) FreeStyle Sheila 14 Day Sensor Kit See Rx Instructions .ROUTE .MEDSUPPLY Qty: 6 2RF Rx Instructions: As directed (DME) FreeStyle Sheila 14 Day [place] Misc See Rx Instructions .ROUTE .MEDSUPPLY Qty: 1 3RF Rx Instructions: check glucose daily with reader rosuvastatin [Crestor] 20 mg tablet 20 mg PO DAILY Qty: 30 5RF lisinopril 40 mg tablet 40 mg PO DAILY Qty: 90 0RF omeprazole 40 mg capsule,delayed release(DR/EC) 40 mg PO DAILY Qty: 30 2RF Discontinued hydrochlorothiazide 12.5 mg tablet 12.5 mg PO DAILY Qty: 90 0RF Date of admission: 02/11/23 14:38 Primary Care Provider: Orlando Toney Admitting Provider: Darrell Pringle V. Attending physician on admission: Francisco Hand Condition: Stable
--- NOTE | 2023-02-13 13:30 | PC.NURSE ---
Patient's son called stating the patient's blood pressure is elevated and was under the impression that patient would be sent home on hydralazine po. This nurse notified Dr. Hand of his conversation since he is the discharging physician. Dr. Hand stated that he would figure out a way and send over a script for this medication.
--- NOTE | 2023-02-13 20:01 | PC.NURSE ---
Patient's son called floor again stating that blood pressure is still elevated. This nurse verified medications. No new scripts appeared to have been sent over. This RN notified Dr. Hand that the patient has not received the script of the new medication. Pending reply. Patient due to take Coreg evening dose and has an appointment with primary care tomorrow. Son noted will call PCP in the morning if no new script is received.
== END 2023-02-12 12:25 | disposition home or self-care (01) | DRG 199 ==
LOC: ANHED 23:01 → ANHIMU 02-09 06:30 → ANH3MEDSUR 02-11 13:26
PROVIDERS: General Practice; Internal Medicine; Student in an Organized Health Care Education/Training Program; Admitting Provider Internal Medicine; Emergency Provider Emergency Medicine; PCP Family Medicine; Visit Provider Hospitalist
DX: I16.0 Hypertensive urgency (principal); N17.9 Acute kidney failure, unspecified; R16.0 Hepatomegaly, not elsewhere classified; R77.8 Other specified abnormalities of plasma proteins; D72.829 Elevated white blood cell count, unspecified; E78.5 Hyperlipidemia, unspecified; I10 Essential (primary) hypertension; K76.0 Fatty (change of) liver, not elsewhere classified; R05.8 Other specified cough; R73.03 Prediabetes; Z28.21 Immunization not carried out because of patient refusal; Z87.891 Personal history of nicotine dependence
CPT/HCPCS: 36415; 70450; 71045; 76700; 80048; 80053; 80069; 81003; 82088; 82948; 83036; 83540; 83550; 83605; 83690; 83735; 83880; 84145; 84244; 84443; 84484; 85025; 85027; 85610; 85730; 93005; 93976; 94762; 96360; 96361; 96374; 96376; 99285; A9270; G0378; J0360; J7030

== ENCOUNTER 2024-01-04 16:02 | Outpatient (CLI) | payer SELFPAY ==
--- NOTE | ~2024-01-04 | US_ITS ---
BILATERAL LOWER EXTREMITY VENOUS ULTRASOUND Ordering provider: Manuel Brink DO History: . R60.0 - Localized edema . Comparison: None FINDINGS: RIGHT LOWER EXTREMITY VEINS: --COMMON FEMORAL: Patent and free of thrombus. Normal compressibility, phasic flow and augmentation. --PROXIMAL SUPERFICIAL FEMORAL: Patent and free of thrombus. Normal compressibility, phasic flow and augmentation. --DISTAL SUPERFICIAL FEMORAL: Patent and free of thrombus. Normal compressibility, phasic flow and au gmentation. --POPLITEAL: Patent and free of thrombus. Normal compressibility, phasic flow and augmentation. --POSTERIOR TIBIAL: Patent and free of thrombus. Normal compressibility, phasic flow and augmentation . LEFT LOWER EXTREMITY VEINS: --COMMON FEMORAL: Patent and free of thrombus. Normal compressibility, phasic flow and augmentation. --PROXIMAL SUPERFICIAL FEMORAL: Patent and free of thrombus. Normal compressibility, phasic flow and augmentation. --DISTAL SUPERFICIAL FEMORAL: Patent and free of thrombus. Normal compressibility, phasic flow and au gmentation. --POPLITEAL: Patent and free of thrombus. Normal compressibility, phasic flow and augmentation. --POSTERIOR TIBIAL: Patent and free of thrombus. Normal compressibility, phasic flow and augmentation . IMPRESSION: Negative bilateral lower extremity venous US. No deep vein thrombosis. Reviewed, dictated and finalized at location A.
== END 2024-01-04 16:03 | disposition home or self-care (01) ==
LOC: ANHIMG 16:23
PROVIDERS: PCP Family Medicine; Visit Provider Internal Medicine Cardiovascular Disease
DX: R60.0 Localized edema (principal)
CPT/HCPCS: 93970

== ENCOUNTER 2024-01-22 13:32 | Outpatient (CLI) | payer SELFPAY ==
--- NOTE | 2024-01-22 13:57 | ECHO_ITS ---
Patient Info Name: Javier Azul Age: 68 years : 1955 Gender: Male Ht: 68 in Wt: 227 lbs BSA: 2.26 m2 HR: 65 bpm BP: 150 / 97 mmHg Technical Quality: Fair Exam Date: 01/22/2024 2:09 PM Exam Location: Echo Lab Patient Status: Outpatient Admit Date: 01/22/2024 Staff Ordering Physician: Manuel Brink DO Tire Specialist: Madeleine Kendrick RDCS Attending Provider: Manuel Brink DO Referring Physician: Cuba MONGE; Exam Type: CA echo doppler color flow Study Info Indications I31.39 - OTHER PERICARDIAL EFFUSION Complete two-dimensional, color flow and Doppler transthoracic echocardiogram is performed. Strain analysis performed. Summary 1. Complete two-dimensional, color flow and Doppler transthoracic echocardiogram is performed. 2. Left ventricular chamber dimension is normal. 3. Left ventricular systolic function is normal, estimated at 60-65%. 4. The left ventricular diastolic function is grade I diastolic dysfunction. 5. E/e' 12 is mildly elevated. 6. Global longitudinal strain is mildly abnormal at -15.9%. 7. There is trace mitral valve regurgitation. 8. There is trace tricuspid valve regurgitation. 9. No pulmonary hypertension, estimated pulmonary arterial systolic pressure is 34 mmHg. 10. There is trivial pericardial effusion. Left Ventricle E/e' 12 is mildly elevated. Global longitudinal strain is mildly abnormal at -15.9%. Left ventricular chamber dimension is normal. Left ventricular systolic function is normal, estimated at 60-65%. The left ventricular diastolic function is grade I diastolic dysfunction. Right Ventricle Right ventricular systolic function is normal and with normal TAPSE 2.2 cm. Right ventricular chamber dimension is normal. Left Atria Left atrial chamber dimension is normal. Right Atria Right atrial chamber dimension is normal. Aortic Valve The aortic valve is trileaflet. There is no aortic valve stenosis. There is no aortic valve regurgitation. Pulmonic Valve There is no pulmonic regurgitation. Mitral Valve There is no mitral valve stenosis. There is trace mitral valve regurgitation. Tricuspid Valve There is trace tricuspid valve regurgitation. No pulmonary hypertension, estimated pulmonary arterial systolic pressure is 34 mmHg. Pericardium/Pleural There is trivial pericardial effusion. Inferior Vena Cava Normal inferior vena cava with >50% collapse upon inspiration consistent with normal right atrial pressure, 5 mmHg. Aorta The aortic root size at the sinus of Valsalva is normal. Left Ventricular Outflow Tract Name Value Normal LVOT 2D LVOT Diameter 2.0 cm LVOT Doppler LVOT Peak Gradient 5 mmHg LVOT Mean Gradient 3 mmHg LVOT VTI 25 cm LVOT VTI/AV VTI Ratio 1.1 LVOT Stroke Volume 76 ml LVOT CO 5.2 l/min LVOT CI 2.3 l/min/m2 Pulmonic Valve Name Value Normal
== END 2024-01-22 13:33 | disposition home or self-care (01) ==
PROVIDERS: PCP Family Medicine; Visit Provider Internal Medicine Cardiovascular Disease
DX: I31.39 Other pericardial effusion (noninflammatory) (principal); I51.89 Other ill-defined heart diseases
CPT/HCPCS: 93306